=== PATIENT | female | born 1950 | race Caucasian/White ===

== ENCOUNTER → 2023-10-15 10:19 | Outpatient (REF) | payer MEDICARE, OTHER, SELFPAY | LOC: MRI 3T 10:19 | PROVIDERS: ATTENDING PHYSICIAN Internal Medicine | DX: M54.16 Radiculopathy, lumbar region (principal); G89.29 Other chronic pain; M54.42 Lumbago with sciatica, left side | CPT/HCPCS: 72148 ==

== ENCOUNTER 2023-11-22 23:39 | Observation (INO) | payer MEDICARE, OTHER, SELFPAY ==
[2023-11-22 19:12] VITALS: BP 196/114
[2023-11-22 19:27] LABS: % Basophils 0.7 % (0-2); % Eosinophils 0.7 % (0-6); % Immature Granulocytes 0.4 % (0-0.5); % Lymphocytes 24.7 % (20.5-51.1); % Monocytes 7.9 % (1.7-9.3); % Neutrophils 65.6 % (42.2-75.2); Absolute Basophils 0.1 10^3/uL (0-0.2); Absolute Eosinophils 0.1 10^3/uL (0-0.7); Absolute Monocytes 0.6 10^3/uL (0.1-0.6); Absolute Neutrophils 5.3 10^3/uL (1.4-6.5); Hemoglobin 13.1 g/dL (12.0-16.0); Mean Corp Hgb Conc. 33.6 g/dL (33.0-37.0); Mean Corpuscular Hgb 32.6 pg (27.0-31.0); Mean Platelet Volume 9.4 fL (7.4-10.4); Nucleated Red Blood Cells % 0 %; Platelet Count 214 10^3/uL (130-400); Red Blood Cell Count 4.02 10^6/uL (4.20-5.40); Red Cell Dist. Width 12.1 % (11.5-14.5); White Blood Cell Count 8.1 10^3/uL (4.8-10.8)
[2023-11-22 19:40] LABS: ALT (SGPT) 17 U/L (0-35); AST (SGOT) 24 U/L (14-36); Albumin 4.7 g/dl (3.5-5.0); Alkaline Phosphatase 64 U/L (38-126); Blood Urea Nitrogen 31 mg/dl (7-17); Calcium 9.9 mg/dl (8.4-10.2); Carbon Dioxide 27 mmol/L (22-30); Chloride 101 mmol/L (98-107); Glucose 100 mg/dl (70-99); Potassium 4.3 mmol/L (3.5-5.1); Sodium 136 mmol/L (135-145); Total Bilirubin 0.6 mg/dl (0.2-1.3); Total Protein 7.5 g/dl (6.3-8.2); eGFR > 60.00
[2023-11-22 19:49] LABS: Troponin I < 0.012 ng/ml
--- NOTE | 2023-11-22 22:04 | ED.GENMED ---
History of Present Illness
General
Chief Complaint: Numbness
Source: patient
Exam Limitations: none
Time Seen by Provider: 11/22/23 22:02
Nursing documentation reviewed up to this point in time: agreed with
Travel History
Have you had any contact with someone who has COVID-19?: No
Do you have any symptoms of coronavirus? Fever > 100 degrees, chills, cough, shortness of breath, sore throat, loss of taste or smell, muscle aches, or headache?: No
History of Present Illness
History of Present Illness:
The patient is a pleasant 73-year-old female the past medical history of hypertension. She reports that around 6:30 PM she developed sudden onset of weakness and numbness of her left hand and forearm. Patient reports that it felt so weak that she
had to use her right arm to lift up her left arm. She reports it did not involve the face or leg. She denies vision changes. She denies acute dizziness. She reports her blood pressure has been elevated for several months with systolic blood
pressure in the 160s. She reports she takes metoprolol 25 mg twice a day as well as losartan. She is not sure if the losartan dose is 25 mg or 50 mg. She reports her doctor recently tried Norvasc but it did not help with her symptoms. Patient
reports her symptoms are now gone completely. They lasted about an hour and went away on their own. She denies chest pain or shortness of breath
Past History
Past History
ED Past Medical History: HTN
ED Past Surgical History: Other (Breast CA with Lympectomy anr Lymph disection., Breast implants, chemo and radiation)
Social History
Tobacco: Non-smoker
Alcohol: Occasional
Drug: None
Personal:
Living: alone
Employment: Other
Family History
Family History: Other
Review of Systems
Review of Systems
Allergies reviewed?: Yes
All Other Systems: ROS reviewed and negative except as documented in HPI and ROS
Constitutional: Reports no symptoms
EENT: Reports no symptoms
Respiratory: Reports no symptoms
Cardiac: Reports no symptoms
ABD/GI: Reports no symptoms
: Reports no symptoms
Musculoskeletal: Reports no symptoms
Skin: Reports no symptoms
Neurological: Reports weakness and numbness
Endocrine: Reports no symptoms
Hematologic/Lymphatic: Reports no symptoms
Psychiatric: Reports no symptoms
Phy Exam
Physical Exam
Physical Exam:
Physical Exam
General: no apparent distress, not acutely ill, well appearing, conversational, smiling
Neck: supple. no meningeal signs. normal psoterior pharynx
Heart: s1/s2 regular rate and rhythm, no murmur. equal radial pulses.
Lungs: no acute respiratory distress. clear bilaterally
Abdomen: normal bowel sounds. not tender. no CVAT
Neuro: alert and orientedx3. no focal neurological deficits. Extraocular muscles intact. Normal finger-nose. 5 out of 5 strength in all extremities without drift.
Skin: no rash
Psychiatric: well kept. interactive and cooperative
Extremities: no edema. no calf tenderness. negative homans. good distal pulses
This a
Course
Orders/Labs/Results
Orders:
Orders
11/22/23 19:15
ECG [Electrocardiogram (*1)] Urgent
Reason for Study: Other
Other Reason for Exam: numbness
ECG [Electrocardiogram (*1)] Urgent
Reason for Study: Other
Other Reason for Exam: numbness
11/22/23 19:16
EKG- Treatment ONCE
11/22/23 19:19
CT Head W/o Iv Contrast Urgent
Comment:
Reason For Exam: numbness
Complete Blood Count/With Diff Urgent
Comprehensive Metabolic Panel Urgent
Troponin I Urgent
11/22/23 22:31
Aspirin 325 mg PO NOW STA
Clopidogrel Bisulfate [Plavix] 300 mg PO NOW STA
Abnormal Lab Results
11/22/23
19:19
RBC 4.02 L 10^6/uL
(4.20-5.40)
MCH 32.6 H pg
(27.0-31.0)
BUN 31 H mg/dl
(7-17)
Glucose 100 H mg/dl
(70-99)
11/22/23 19:19
11/22/23 19:19
Vital Signs
Initial and Last Documented VS:
Initial Vital Signs
Temp Pulse Resp BP Pulse Ox
98.2 F 60 20 196/114 98
11/22/23 19:12 11/22/23 19:12 11/22/23 19:12 11/22/23 19:12 11/22/23 19:12
Last Documented Vital Signs
Temp Pulse Resp BP Pulse Ox
98.2 F 62 16 178/96 99
11/22/23 19:12 11/22/23 22:23 11/22/23 22:23 11/22/23 22:23 11/22/23 22:23
MDM/Problems Addressed
Differential Diagnosis Includes:
Acute TIA, hypertensive urgency, aortic dissection, cervical radiculopathy
MDM/Problems Addressed:
Patient presents with acute numbness and weakness of left forearm and hand which are now completely resolved
Chronic conditions affecting care: HTN
Acute Exacerbation and/or Progression of Chronic Illness:
Patient's elevated blood pressure may be acutely elevated and causing neurological symptoms and may represent progression of chronic hypertension
Acute Exacerbation and/or Progression of Chronic Illness: HTN
*Radiology
Radiology exam reviewed: radiology read reviewed
*Pulse Oximetry
Patient hypoxic: no
*EKG
Interpreted by ED Provider?: Yes
Interpretation: abnormal
Comparison EKG: no changes
Rate: normal
Rhythm: sinus
[place]: left axis deviation
Interval: normal interval
QRS Pattern: normal QRS
Ischemia: non-specific ST changes
*[employer] Interpretation
Rate: normal
Interpretation: normal
Rhythm: sinus
*Critical Care Note
Total Time (30-74mins, 75-104mins- exclusive of procedures): Not Applicable
Data Reviewed
Review of Other/Old Records Reveals: Radiology Studies (MRI reviewed from 2023 related to lumbar spine which shows spinal stenosis and DJD)
Source: patient
Patient Management
Discussion with other providers: Hospitalist and Other (Dr. Cedillo who felt the patient should be admitted due to high risk for transient ischemic attack)
Escalation/DeEscalation of care consider admission/obs:
Due to patient's very elevated blood pressure neurological symptoms concerning for TIA, patient will be admitted to the hospital for further stroke workup and blood pressure management
ED Attending Note
-
Portions of this chart may have been created with voice recognition software.� Occasional wrong word or��sound alike� substitutions may have occurred due to the inherent limitations of voice recognition software.
Discharge Plan
Departure
Patient Disposition: Admit
Date of Disposition: 11/22/23
Time of Disposition: 22:30
Admit to: Telemetry
Presentation/result/management discussed w/ accepting MD/DO: Hospitalist
Patient with high blood pressure during this ER visit?: Yes
Condition: Good
Covid-19: Not Applicable
Discharge Problem:
acute TIA, Hypertensive urgency
Prescriptions:
No Action
cholecalciferol (vitamin D3) 1,000 UNIT tablet
1,000 unit PO BID
losartan 50 mg tablet
50 mg PO DAILY
gabapentin 100 mg capsule
100 mg PO HS PRN (Reason: sciatic pain)
metoprolol tartrate 25 mg tablet
25 mg PO BID
Rx Instructions:
taken w/ 50mg = 75mg
metoprolol tartrate 50 mg tablet
50 mg PO BID
Rx Instructions:
taken w/ 25mg = 75mg
acetaminophen 500 mg Tablet
1,000 mg PO HS
Referrals:
Allegra West MD [Family Provider] -
Interventions
Interventions:
*Risk Screen - Suicide Last Done: 11/22/23 19:12
*General Assessment Last Done: 11/22/23 19:12
*Neglect/Abuse Screening Last Done: 11/22/23 21:37
ED- Fall Risk Assessment Last Done: 11/22/23 21:37
*ED COVID-19 Vaccine History Last Done: 11/22/23 21:37
ED- Neurological Assessment Last Done: 11/22/23 21:37
[2023-11-22 22:23] VITALS: BP 178/96
[2023-11-22] MEDS: PLAVIX 300 MG PO (22:36)
[2023-11-22] MEDS: ASPIRIN 325 MG PO (22:36)
--- NOTE | 2023-11-22 23:15 | HPS.HSE ---
Family Physician
-
Family Physician: Allegra West
Chief Complaint
-
Left arm numbness / weakness
History of Present Illness
Patient is a 73y F with PMH significant for hypertension who presents to ED complaining of left arm numbness and weakness. Patient states that she was working on her computer this evening. Around 6:30 PM she noted numbness of the LUE - from the
elbow to the fingers. She had significant weakness - mostly of the hand / wrist. She had no headache or vision changes. No facial numbness or slurred speech. No LLE symptoms.
Patient states that the weakness in the hand lasted for about 30 seconds. The numbness in the LUE lasted for about 30 minutes and has since fully resolved.
Patient notes that she has chronically uncontrolled hypertension. She denies any recent med changes.
Patient denies any prior history of [place], CVA, etc.
Medical History
Past Medical History
Past Medical History: Reports Other
Additional Past Medical History:
Hypertension
Breast Cancer s/p Lumpectomy, Chemo and XRT
DDD
Past Surgical History: Reports Other
Additional Past Surgical History:
Left Lumpectomy and Axillary Dissection
Social History
Tobacco: Non-smoker
Alcohol: Occasional
Drug: None
Family History
Family History: Other (Mother: DM-II)
Allergies / Home Medications
Allergies reflects when Allergies were last updated in [facility].
Home Medications with original date entered in [facility]
Allergy/Medication List:
Allergies
Allergy/AdvReac Type Severity Reaction Status Date / Time
NKA - No Known Allergies Allergy Unknown Uncoded 11/22/23 19:12
Home Medications
cholecalciferol (vitamin D3) 25 mcg (1,000 unit) tablet 1,000 unit PO BID 03/14/11
acetaminophen 500 mg tablet 1,000 mg PO HS 11/22/23
gabapentin 100 mg capsule 100 mg PO HS PRN sciatic pain 11/22/23
losartan 50 mg tablet 50 mg PO DAILY 11/22/23
metoprolol tartrate 25 mg tablet 25 mg PO BID 11/22/23
metoprolol tartrate 50 mg tablet 50 mg PO BID 11/22/23
Review of Systems
-
History Source: Patient
A 12 point ROS was completed and negative except as noted: Yes
Constitutional: Denies Fever or Chills
Respiratory: Denies Cough or Trouble Breathing
Cardiac: Denies Chest Pain or Palpitations
Abdomen/GI: Denies Abdominal Pain, Nausea, Vomiting or Diarrhea
: Denies Dysuria or Frequency
Neurological: Reports Weakness and Numbness; Denies Dizzy or Headache
Psych: Denies Depression or Anxiety
Physical Exam
Vital Signs
Vital Signs
Temp Pulse Resp BP Pulse Ox
98.2 F 62 16 178/96 99
11/22/23 19:12 11/22/23 22:23 11/22/23 22:23 11/22/23 22:23 11/22/23 22:23
Physical Exam
General: Other (73y F in no acute distress.)
HEENT: Moist mucous membranes and PERRLA
Respiratory: Clear; No Wheezes, Rales or Rhonchi
Cardiac: S1/S2 and Regular Rhythm; No Murmur
GI: Soft, Non Tender, Non Distended and Normal Bowel Sounds
Musculoskeletal: No Clubbing, No Cyanosis and No Edema
Neuro: AO x 3 and Nonfocal/grossly intact
Laboratory Results
-
11/22/23 19:19
11/22/23 19:19
Laboratory Results
Total Bilirubin 0.6 mg/dl (0.2-1.3) 11/22/23 19:19
AST 24 U/L (14-36) 11/22/23 19:19
ALT 17 U/L (0-35) 11/22/23 19:19
Alkaline Phosphatase 64 U/L (38-126) 11/22/23 19:19
Troponin I < 0.012 ng/ml 11/22/23 19:19
Impression/Plan
-
A/P: Patient is a 73y F with PMH significant for hypertension who presents to ED complaining of LUE numbness and weakness.
CVA / TIA
- Observe overnight for further evaluation and treatment.
- Currently asymptomatic. Follow neurologic exam.
- Neurology eval in the AM.
- MRI in the AM.
- DAPT for now.
- BP control. Check AM lipids.
Hypertension, Uncontrolled
- BP improved in the ED without intervention.
- Continue usual outpatient med regimen with additional hydralazine PRN for SBP > 180.
- Adjust regimen as needed for improved control.
- Patient indicates that BP has been poorly controlled for quite some time.
History of Breast Cancer
- s/p L lumpectomy and axillary dissection as well as XRT.
- ? if LUE symptoms may be related to prior surgery +/- XRT?
- No longer on any active therapy for breast cancer.
DDD
- Stable. L sciatic pain improved s/p SI injection on Monday of this week.
- Given location of injection, doubt that this is related to today's symptoms.
DVT Prophylaxis: SCDs
Code Status: Full
[2023-11-22 23:26] VITALS: BP 213/106
[2023-11-22 23:39] VITALS: BP 210/110
[2023-11-22 23:49] VITALS: BMI 32.0
[2023-11-22] MEDS: APRESOLINE 5 MG IV (23:58)
[2023-11-23] VITALS (15 sets, daily range): BP systolic 152–195; BP diastolic 63–99; PULSE 69; BMI 32.7; BMI 31.2
[2023-11-23] MEDS: TYLENOL 1000 MG PO (02:13)
[2023-11-23] MEDS: LOPRESSOR 75 MG PO (02:17)
[2023-11-23 06:06] LABS: Hematocrit 38.4 % (37.0-47.0); Hemoglobin 13.1 g/dL (12.0-16.0); Mean Corp Hgb Conc. 34.1 g/dL (33.0-37.0); Mean Corpuscular Volume 96.7 fL (81.0-99.0); Mean Platelet Volume 9.9 fL (7.4-10.4); Platelet Count 206 10^3/uL (130-400); Red Blood Cell Count 3.97 10^6/uL (4.20-5.40); White Blood Cell Count 7.9 10^3/uL (4.8-10.8)
[2023-11-23 06:33] LABS: Blood Urea Nitrogen 30 mg/dl (7-17); Calcium 9.4 mg/dl (8.4-10.2); Carbon Dioxide 27 mmol/L (22-30); Chloride 106 mmol/L (98-107); Estimated Creatinine Clearance 53 ml/min; Glucose 103 mg/dl (70-99); HDL Cholesterol 97 mg/dl; LDL Cholesterol, Calculated 74 mg/dl; Potassium 3.8 mmol/L (3.5-5.1); Sodium 136 mmol/L (135-145); Total Cholesterol 216 mg/dl (50-199); Triglyceride 229 mg/dl (10-149); Very Low Density Lipoprotein 45 mg/dl (0-30); eGFR 59.86
--- NOTE | 2023-11-23 07:23 | CON.NEURO4 ---
Addendum entered and electronically signed by John Cedillo MD 11/23/23 13:19:
Reviewed the report from transthoracic echocardiogram notable only for mild left atrial dilation.
MRI and MRA images and report reviewed. No acute infarcts no chronic infarcts and minimal small vessel ischemic disease in the white matter of the hemispheres, no chronic microhemorrhages. Vessels on the MRA of the head and neck look good no
significant carotid stenosis nor intracranial stenosis no aneurysms or vessel malformations.
Most likely TIA given short lasting focal symptoms of left arm and hand numbness and weakness associated with history of hypertension and very high BP's in the ED. Unlikely this would be purely a hypertensive encephalopathy issue with such specific
focal symptoms of left hand/arm numbness and weakness.
Recommendations
Would continue the DAPT therapy and low-dose statin and control blood pressure
Short course of 1 to 2 weeks of outpatient cardiac monitoring with holter would be reasonable but I do not think would require long-term cardiac monitoring
Original Note:
Consultation - Neurology 4
-
CONSULTING PHYSICIAN: Lizbeth Cedillo
REFERRING PHYSICIAN: ER
DICTATED BY: Lizbeth Cedillo
DATE/TIME OF REQUEST: 11/22/23
DATE/TIME OF CONSULTATION: 11/23/23
Reason for Consultation: TIA, left arm weakness
History of Present Illness:
Patient is a 73-year-old right-handed woman with a past med history of sciatica, hypertension, previous breast cancer who presents to the hospital with transient symptoms of left hand some paresthesias yesterday evening lasting around 10 to 30
minutes in total duration.
Patient has been in her normal state of health recently with no head or neck trauma or unusual headaches. In the evening around 6-6 30 patient had gotten done eating dinner and she noticed sudden onset sensory change as well as weakness of the left
hand and forearm and had significant weakness that the left hand and arm were barely moving in the right hand to move it around, this lasted around 10 minutes and was completely resolved by 30-minutes. No headache speech change facial is facial
droop, or weakness of the legs or walking difficulties during this episode. She has never had anything like this before. She feels back to completely normal at this point. No similar episodes in the past. No episodes of sudden vision loss. She
does not have any history of any significant headaches and does not take any antiplatelet at baseline.
Blood pressures have been significantly elevated in the 190 systolic range in the ER.
.
Past Medical History: Hypertension, breast cancer s/p lumpectomy, radiation and chemotherapy, degenerative disc disease
Surgical History: Left breast lumpectomy and axillary dissection
Family History: Non-contributory
Social History: Retired from working in [employer], lives on her own, has aduld children and family in the area, no tobacco, no recreational drugs, occasional wine a few times a week
Review of Symptoms:
Patient denies any fever, headache, chest pain, shortness of breath, GI or symptoms.
Physical Exam:
Well appearing middle aged woman, no head or neck trauma, oropharynx and eyes clear, heart rate regular no murmur, breathing unlabored, abdomen soft non tender, no lower extremity edema
Neurologic Examination:
The patient is awake, alert and oriented x 3. She is able to follow commands and answer questions appropriately. There is no aphasia or dysarthria. On cranial nerve assessment, pupils are 3 mm bilateral, round and reactive to light and
accommodation. Visual mcghee are full. Extraocular movements are intact. Facial sensations are intact and bilaterally symmetrical, there is no facial asymmetry. Hearing is intact bilaterally to normal conversation volume. Tongue palate and uvula
are midline. Sternocleidomastoid strengths are full bilaterally. Motor strengths are 5/5 bilateral upper and lower extremities on medical research [place] scale. There is no drift or involuntary movement noted. Deep tendon reflexes are 2+ bilateral
upper and lower extremities and Babinski is absent bilaterally. Sensations of pain, touch, temperature and vibration are intact and bilaterally symmetrical. There was no extinction noted on double simultaneous stimulation. Coordination is intact by
finger to nose bilaterally.
Neuro Imaging: CT head non contrast unremarkable
Impressions
1. High degree of suspicion for TIA of the right hemisphere versus minor stroke, painless left arm weakness and sensory change. Unlikely this represents cervical radiculopathy or peripheral nerve issue (carpal tunnel syndrome or mononeuropathy
of the hand)
2. Chronic essential hypertension as most important risk factor for stroke
3. History of left leg sciatica
Recommendations:
1. Would aim for systolic blood pressure less than 180
2. Check MRI of the brain and MRA of the head without contrast and MRI of the neck with contrast
3. Monitor on cardiac telemetry and check transthoracic echocardiogram
4. Neurologic checks and NIH stroke scales
5. Patient given aspirin and Plavix loads in the ER would continue on DAPT therapy most likely for 3 weeks depending on vessel imaging of the head and neck, then transitioning to aspirin 81 mg monotherapy
6. LDL is 76 would aim for LDL goal less than 70, start atorvastatin 10 mg daily or could use another low intensity statin
7. Stroke education materials
Will follow
Discussed patient care with: Patient, Hospitalist
[2023-11-23] MEDS: LOW STRENGTH ASPIRIN 81 MG PO (08:07)
[2023-11-23] MEDS: COZAAR 50 MG PO (08:08)
[2023-11-23] MEDS: PLAVIX 75 MG PO (08:08)
--- NOTE | 2023-11-23 08:32 | W.PN.HOSP.TC ---
Today's Communication/Plan
-
Repeat BP
MRI
Needs Nifedipine 30 mg daily
Assessment / Plan
Assessment / Plan
Pleasant 73-year-old female with left arm numbness and weakness
CVS: S1-S2 normal
Chest: CTA B/L
Abdomen: Soft, NT / Bowel sounds present
Extremities: No edema, normal pulses
DIESEL MACHINIST: Normal cranial nerves
5 x 5 strength upper extremity and lower extremity bilaterally
Decreased reflexes left lower extremity
# Left arm numbness and weakness
CVA/TIA workup
Control BP -patient got metoprolol and losartan this morning. Repeat
Will add nifedipine 30 mg daily once MRI is performed and no stroke
Continue NIH/neuro eval
Neurology evaluation
MRI
Continue antiplatelets
PT OT evaluation and speech eval
#Hypertension poorly controlled
Continue losartan and metoprolol
Will add nifedipine 30 mg daily as above
Adjust medicine as needed
# History of breast cancer with history of left sided lumpectomy and axillary dissection and radiation
# DDD
Left sciatic pain had injection on 11/20/2023
# Elevated triglycerides
# Obesity per BMI criteria
# DVT prophylaxis-Lovenox
# Full code
D/W RN
D/W Neuro
Anticipated Discharge: Within 24 hours
Subjective/Interval History
-
Date of Service: November 23, 2023
Objective Data
-
Labs:
Laboratory Results
11/23/23
05:34
WBC 7.9
Hgb 13.1
Hct 38.4
Plt Count 206
Sodium 136
Potassium 3.8
Chloride 106
Carbon Dioxide 27
BUN 30 H
Creatinine 1.0
Glucose 103 H
Calcium 9.4
Vital Signs:
Vital Signs
Temp Pulse Resp BP Pulse Ox
98.2 F 59 16 182/95 98
11/22/23 23:39 11/23/23 06:15 11/23/23 06:15 11/23/23 08:08 11/23/23 05:43
--- NOTE | 2023-11-23 10:11 | PTOTSP ---
pt currently demonstrates ability to complete simple ADLs, functional transfers, ambulation with no assistance. pt oriented, following direction without difficulty. no acute OT needs identified at this time, as pt's symptoms have resolved. no overt
deficits noted. will sign off.
--- NOTE | 2023-11-23 10:13 | PTOTSP ---
Patient demonstrates safe and independent mobility, no skilled physical therapy needs at this time.
[2023-11-23] MEDS: ATIVAN 1 MG IV (10:43)
[2023-11-23 13:16] LABS: Glycohemoglobin (HgbA1c) 5.6 % (4.0-5.6)
[2023-11-23] MEDS: PROCARDIA XL (EXTENDED RELEASE) 30 MG PO (13:59)
--- NOTE | 2023-11-23 14:46 | PTCARENOTE ---
Pt up oob to bedside commode and back w/ assistance x 1. Able to urinate on own.
--- NOTE | 2023-11-23 16:03 | W.PN.UPDATE ---
Addendum entered and electronically signed by Emilie Bowling MD 11/24/23 08:33:
Dict- [id number]
Original Note:
Update Note
Progress Note Update
echo and MRI /MRA noted.
No acute changes
BP Better with nifedipine
Monitor blood pressure 1 more time if stable can be discharged on this new medicine regimen
Aspirin Plavix and statin for 3 weeks then aspirin and statin
Discussed with the patient , she would like to go home today.
[2023-11-23] MEDS: LIPITOR 10 MG PO (17:54)
[2023-11-23] MEDS: LOVENOX 40 MG SC (17:54)
--- NOTE | 2023-11-24 08:32 | W.DS.TRANS ---
DC Summary - Demo Specialist
-
Discharge Instructions:
Discharge Diagnosis/Procedures TIA, uncontrolled hypertension, elevated
cholesterol
Diet 2 Gram Sodium
Activity As tolerated
Driving Restrictions As prior to admission
Blood Work CBC, LFTs, cholesterol level in 3 months
Instructions:
Stand-Alone Forms:
Changes to Home Medications: Yes
Discharge Medications:
DC Medications w/original date entered in [facility]
cholecalciferol (vitamin D3) 25 mcg (1,000 unit) tablet 1,000 unit PO BID Supplement 03/14/11
acetaminophen 500 mg tablet 1,000 mg PO HS Pain 11/22/23
gabapentin 100 mg capsule 100 mg PO HS PRN sciatic pain 11/22/23
losartan 50 mg tablet 50 mg PO DAILY Blood Pressure 11/22/23
metoprolol tartrate 25 mg tablet 25 mg PO BID Blood Pressure 11/22/23
metoprolol tartrate 50 mg tablet 50 mg PO BID Blood Pressure 11/22/23
aspirin 81 mg chewable tablet (Children's Aspirin) 81 mg PO DAILY Blood clot prevention/tx #0 tabs 11/23/23
atorvastatin 10 mg tablet 10 mg PO QPM High cholesterol #30 tabs 11/23/23
clopidogrel 75 mg tablet 75 mg PO DAILY Blood clot prevention/tx #20 tabs 11/23/23
nifedipine 30 mg tablet,extended release 30 mg PO DAILY Blood pressure #30 tabs 11/23/23
Home Medication Changes
new
aspirin 81 mg chewable tablet (Children's Aspirin) 81 mg PO DAILY Blood clot prevention/tx #0 tabs 11/23/23
atorvastatin 10 mg tablet 10 mg PO QPM High cholesterol #30 tabs 11/23/23
clopidogrel 75 mg tablet 75 mg PO DAILY Blood clot prevention/tx #20 tabs 11/23/23
nifedipine 30 mg tablet,extended release 30 mg PO DAILY Blood pressure #30 tabs 11/23/23
Pending Results: No
== END 2023-11-23 18:22 | disposition home or self-care (01) ==
LOC: 4 WEST ACU 23:39
PROVIDERS: Emergency Medicine; ADMITTING PHYSICIAN Hospitalist; ATTENDING PHYSICIAN Hospitalist; CONSULT PHYSICIAN Student in an Organized Health Care Education/Training Program; EMERGENCY PHYSICIAN Emergency Medicine; FAMILY PHYSICIAN Internal Medicine
DX: G45.9 Transient cerebral ischemic attack, unspecified (principal); R20.0 Anesthesia of skin; I10 Essential (primary) hypertension; R53.1 Weakness; M54.32 Sciatica, left side; E78.00 Pure hypercholesterolemia, unspecified; E66.9 Obesity, unspecified; Z85.3 Personal history of malignant neoplasm of breast; Z92.21 Personal history of antineoplastic chemotherapy; Z92.3 Personal history of irradiation; Z98.82 Breast implant status; Z68.31 Body mass index [BMI] 31.0-31.9, adult
CPT/HCPCS: 70450; 70544; 70548; 70551; 80048; 80053; 80061; 83036; 84484; 85025; 85027; 93005; 93306; 97165; 99285; A9585; G0378

== ENCOUNTER → 2024-06-22 13:14 | Outpatient (REF) | payer MEDICARE, OTHER, SELFPAY | LOC: WDC 13:14 | PROVIDERS: ATTENDING PHYSICIAN Family Medicine | DX: Z12.31 Encounter for screening mammogram for malignant neoplasm of breast (principal); Z12.39 Encounter for other screening for malignant neoplasm of breast | CPT/HCPCS: 77063; 77067 ==

== ENCOUNTER 2025-04-01 11:35 | Emergency (ER) | payer MEDICARE, OTHER, SELFPAY ==
[2025-04-01 11:43] VITALS: BP 156/90
[2025-04-01 11:56] LABS: Hematocrit 41.1 % (37.0-47.0); Hemoglobin 13.5 g/dL (12.0-16.0); Mean Corp Hgb Conc. 32.8 g/dL (33.0-37.0); Mean Corpuscular Volume 96.9 fL (81.0-99.0); Nucleated Red Blood Cells % 0 %; Platelet Count 216 10^3/uL (130-400); Red Cell Dist. Width 12.2 % (11.5-14.5)
[2025-04-01 12:16] LABS: ALT (SGPT) 18 U/L (0-35); AST (SGOT) 25 U/L (14-36); Albumin 4.6 g/dl (3.5-5.0); Alkaline Phosphatase 64 U/L (38-126); Blood Urea Nitrogen 19 mg/dl (7-17); Calcium 9.6 mg/dl (8.4-10.2); Carbon Dioxide 29 mmol/L (22-30); Chloride 105 mmol/L (98-107); Glucose 109 mg/dl (70-99); Potassium 4.7 mmol/L (3.5-5.1); Sodium 137 mmol/L (135-145); Total Protein 7.5 g/dl (6.3-8.2); eGFR 59.49
[2025-04-01 12:22] LABS: Troponin I < 0.012 ng/ml
[2025-04-01 12:38] VITALS: BMI 29.9
[2025-04-01] MEDS: NSS 500 IV (13:10)
--- NOTE | 2025-04-01 13:20 | ED.GENMED ---
History of Present Illness
General
Chief Complaint: Extremity Pain (non-traumatic)
Source: patient
Exam Limitations: none
Time Seen by Provider: 04/01/25 12:33
History of Present Illness
History of Present Illness:
74-year-old female with 3 days of left upper shoulder/trapezius pain. Radiating slightly to the left neck. Denies chest pain shortness of breath. Not obviously movement related. No pleuritic pain. No exertional component. No numbness tingling
or weakness to the arm. She has baseline continual symptoms but at times it will increase. This will last about 5 to 10 minutes when it does increase.
Past History
Past History
ED Past Medical History: HTN
ED Past Surgical History: Other (Breast CA with Lympectomy anr Lymph disection., Breast implants, chemo and radiation)
Social History
Tobacco: Non-smoker
Alcohol: Occasional
Drug: None
Personal:
Living: alone
Employment: Other
Family History
Family History: Other
Review of Systems
Review of Systems
All Other Systems: Not applicable
Respiratory: Denies trouble breathing
Cardiac: Denies chest pain, palpitations or syncope
Phy Exam
Physical Exam
Physical Exam:
GENERAL: Alert and oriented in no apparent distress
EYE: Orbits normal.
NECK: Supple.. Nontender. No spinal tenderness. Location is discomfort is the left upper trapezius area. Good range of motion of the shoulder.
ENT: Pharynx without erythema
CARDIAC: Regular rate and rhythm without any obvious murmurs. Good distal pulses and color.
LUNGS: Clear breath sounds,normal
ABDOMEN: Soft, without focal tenderness or distention
NEUROLOGICAL: Alert and oriented , grossly non-focal. Upper extremity strength within normal limits.
SKIN: Warm and dry, no rash or lesion, no discoloration, skin intact.
MUSCULOSKELETAL: No edema,no deformity.Good color
PSYCH: Normal and appropriate interaction.
Course
Orders/Labs/Results
Orders:
Orders
04/01/25 11:36
EKG [Electrocardiogram (*1)] Urgent
Reason for Study: Other
Other Reason for Exam: LUE pain
04/01/25 11:37
EKG- Treatment ONCE
04/01/25 11:48
Complete Blood Count/With Diff Urgent
Comprehensive Metabolic Panel Urgent
Troponin I Urgent
04/01/25 12:43
CT Cervical Spine W/o Iv Contr Urgent
Comment:
Reason For Exam: Left upper chest/upper back pain
CT Chest Angio W/wo Iv Contras Urgent
Comment:
Reason For Exam: Left upper chest/upper back pain nontraumatic
04/01/25 12:44
0.9% Sodium Chloride 500 ml [Nss] 500 ml IV BOLUS
Abnormal Lab Results
04/01/25
11:48
MCH 31.8 H pg
(27.0-31.0)
MCHC 32.8 L g/dL
(33.0-37.0)
BUN 19 H mg/dl
(7-17)
Glucose 109 H mg/dl
(70-99)
04/01/25 11:48
04/01/25 11:48
Vital Signs
Initial and Last Documented VS:
Initial Vital Signs
Temp Pulse Resp BP Pulse Ox
97.9 F 62 18 156/90 98
04/01/25 11:43 04/01/25 11:43 04/01/25 11:43 04/01/25 11:43 04/01/25 11:43
Last Documented Vital Signs
Temp Pulse Resp BP Pulse Ox
97.9 F 62 18 156/90 98
04/01/25 11:43 04/01/25 11:43 04/01/25 11:43 04/01/25 11:43 04/01/25 13:22
MDM/Problems Addressed
Differential Diagnosis Includes:
Patient with continual symptoms for 3 days. Nonexertional. It does wax and wane but has never gone away throughout these 3 days. I do not feel this is cardiac. Troponin normal EKG normal. Doubt vascular issue but CT angio is pending for
completeness. Likely radiculopathy.
*Radiology
Radiology exam reviewed: radiology read reviewed (3 mm pulmonary nodule. Thyroid nodule. Negative dissection. Degenerative changes in the cervical spine)
*Pulse Oximetry
SaO2: 98
Oxygen Mode of Delivery: Room air
Patient hypoxic: no
*EKG
Interpreted by ED Provider?: Yes
Interpretation: normal
Comparison EKG: no changes
Heart Rate: 62
Rate: normal
Rhythm: sinus
[place]: normal axis
Interval: normal interval
QRS Pattern: normal QRS
Ischemia: no ischemia
*Critical Care Note
Total Time (30-74mins, 75-104mins- exclusive of procedures): Not Applicable
Data Reviewed
Review of Other/Old Records Reveals: Labs, Records and Testing
Update Note
Update Note:
Patient was given a copy of the report. She will follow-up thyroid nodule and the lung nodule. There is no dissection. Her chest pain has been continuous for 3 days. Does not need repeat troponin testing for this reason. Symptomatic treatment
and follow-up
ED Attending Note
-
Portions of this chart may have been created with voice recognition software.� Occasional wrong word or��sound alike� substitutions may have occurred due to the inherent limitations of voice recognition software.
Discharge Plan
Departure
Patient Disposition: Home (Routine Discharge)
Date of Disposition: 04/01/25
Time of Disposition: 15:03
Patient with high blood pressure during this ER visit?: Yes
Discharge Problem:
Left neck/shoulder pain, Radiculopathy, Incidental thyroid/lung nodule
Instructions: Radiculopathy of the neck and back (including sciatica), BLOOD PRESSURE
Prescriptions:
No Action
cholecalciferol (vitamin D3) 1,000 UNIT tablet
1,000 unit PO BID
losartan 50 mg tablet
50 mg PO DAILY
gabapentin 100 mg capsule
100 mg PO HS PRN (Reason: sciatic pain)
metoprolol tartrate 25 mg tablet
25 mg PO BID
Rx Instructions:
taken w/ 50mg = 75mg
metoprolol tartrate 50 mg tablet
50 mg PO BID
Rx Instructions:
taken w/ 25mg = 75mg
acetaminophen 500 mg Tablet
1,000 mg PO HS
atorvastatin 10 mg Tablet
10 mg PO QPM Qty: 30 0RF
nifedipine 30 mg Tablet Extended Release
30 mg PO DAILY Qty: 30 0RF
clopidogrel 75 mg Tablet
75 mg PO DAILY Qty: 20 0RF
aspirin [Children's Aspirin] 81 mg Tablet,Chewable
81 mg PO DAILY Qty: 0 0RF
Referrals:
Jammie Peña DO [Family Provider, Family Practice] - Follow up in 2-3 days
Activity Restrictions/Additional Instructions:
Follow-up closely with your primary physician
Follow-up the CAT scan findings on your thyroid and lung
Return immediately with chest pain shortness of breath weakness in the arm tingling in the arm, or any other acute neurologic symptoms
Interventions
Interventions:
*Risk Screen - Suicide Last Done: 04/01/25 11:44
*Neglect/Abuse Screening Last Done: 04/01/25 11:44
ED-Skin Assessment Last Done: 04/01/25 12:38
ED-Musculoskeletal Assessment Last Done: 04/01/25 12:38
Discharge Date and Time
Print Language: [place]
== END 2025-04-01 15:15 | disposition home or self-care (01) ==
LOC: EMR 11:35
PROVIDERS: Emergency Medicine; EMERGENCY PHYSICIAN Emergency Medicine; FAMILY PHYSICIAN Family Medicine
DX: M54.2 Cervicalgia (principal); M25.512 Pain in left shoulder; M54.10 Radiculopathy, site unspecified; R91.1 Solitary pulmonary nodule; I10 Essential (primary) hypertension; Z85.3 Personal history of malignant neoplasm of breast
CPT/HCPCS: 99284; 96360; 71275; 72125; 80053; 84484; 85025; 93005; Q9967

== ENCOUNTER → 2025-06-24 13:19 | Outpatient (REF) | payer MEDICARE, OTHER, SELFPAY | LOC: RAD 13:19 | PROVIDERS: ATTENDING PHYSICIAN Family Medicine | DX: E04.1 Nontoxic single thyroid nodule (principal) | CPT/HCPCS: 76536 ==